=== PATIENT | male | born 1950 | race Caucasian/White ===

== ENCOUNTER 2016-07-14 09:41 | Day surgery (SDC) | payer MEDICARE, OTHER ==
[~2016-07-14 09:41] MED LIST: DEXAMETHASONE4 MG PO; IBUPROFEN200 M2 PO; KEPPRA250 MG PO; MULTI VITAMIN1 EAC1 PO; MULTI VITAMIN1 EAC2 PO; NORVASC5 M2 PO; PERCOCET 5-3251 EACH PO; PRINIVIL10 MG PO; TYLENOL EXTRA500 M1 PO; ZYRTEC10 M7 PO; ZYRTEC10 MG PO
[2016-07-14 11:07] LABS: BASO % 0.4 % (0-2); EOS % 5.1 % (0-7); EOSINOPHIL ABSOLUTE COUNT 0.4 tho/cmm (0.0-0.7); HCT-HEMATOCRIT 46.3 % (36.0-53.5); HGB-HEMOGLOBIN 15.7 gm/dl (13.5-17.0); IMMATURE GRANULOCYTES ABSOLUTE 0.03 tho/cmm (0-0.03); IMMATURE GRANULOCYTES PERCENT 0.4 % (0-0.3); LYMPH % 12.6 % (20-45); LYMPH ABSOLUTE COUNT 1.1 tho/cmm (0.8-4.5); MCH (MEAN CORPUSCULAR HGB) 34.7 pg (28.0-32.0); MCHC MEAN CORPUSCULAR HGB CONC 33.9 % (32.0-36.0); MCV (MEAN CELL VOLUME) 102.2 fl (82.0-96.0); MEAN PLATELET VOLUME 9.2 cmc (9.4-12.4); MONO % 12.3 % (0-12); NEUTROPHIL ABSOLUTE COUNT 5.8 tho/cmm (1.6-8.0); NEUTROPHIL-AUTOMATED 5.8 tho/cmm (1.6-8.0); NEUTROPHILS % 69.2 % (40-80); PLATELET COUNT 179 tho/cmm (150-450); RED BLOOD COUNT 4.53 mil/cmm (4.40-5.70); RED CELL DISTRIBUTION WIDTH 14.3 % (12.4-16.4); WHITE BLOOD COUNT 8.3 tho/cmm (4.0-10.0)
[2016-07-14 11:10] LABS: INR 0.9 INR (0.9-1.1); PROTHROMBIN TIME 10.6 SECONDS (9.0-13.6)
== END 2016-07-14 14:30 ==
LOC: CTSCAN 09:41 → SHSB 09:45
PROVIDERS: Radiology Diagnostic Radiology
PROC: 0QBG3ZX Excision of Right Tibia, Percutaneous Approach, Diagnostic (ICD-10-PCS; principal; 2016-07-14)
DX: C79.51 Secondary malignant neoplasm of bone (principal); Z85.118 Personal history of other malignant neoplasm of bronchus and lung; Z86.711 Personal history of pulmonary embolism
CPT/HCPCS: J2250; J3010; J7030